=== PATIENT | male | born 1950 | race Caucasian/White ===

== ENCOUNTER → 2017-12-30 | Day surgery (SDC) | payer OTHER ==
[2017-12-29 09:44] LABS: BASOPHILS % 0.6 % (0.0-1.0); EOSINOPHILS # (AUTO) 0.2 (0.0-0.4); EOSINOPHILS % 3.6 % (0.0-6.0); HEMATOCRIT 40.8 % (38.2-49.6); HEMOGLOBIN 14.6 g/dL (14.0-18.0); LYMPHOCYTES # (AUTO) 1.4 (1.0-3.2); LYMPHOCYTES % 20.6 % (18.0-39.1); MEAN CORPUSCULAR HEMOGLOBIN 32.7 pg (28-32); MEAN CORPUSCULAR HGB CONC 35.8 g/dL (31-35); MEAN CORPUSCULAR VOLUME 91.5 fL (81-99); MONOCYTES # (AUTO) 0.6 (0.2-0.8); MONOCYTES % 8.1 % (4.4-11.3); NEUTROPHILS # (AUTO) 4.5 (2.1-6.9); NEUTROPHILS % 66.5 % (38.7-80.0); PLATELET COUNT 268 x10e3/uL (140-360); RED BLOOD COUNT 4.46 x10e6/uL (4.3-5.7)
[2017-12-29 10:09] LABS: ANION GAP 13.2 mmol/L (8-16); BLOOD UREA NITROGEN 19 mg/dL (7-26); BUN/CREATININE RATIO 21 (6-25); CALCIUM 9.6 mg/dL (8.4-10.2); CARBON DIOXIDE 27 mmol/L (22-29); CHLORIDE 104 mmol/L (98-107); CREATININE, SERUM 0.92 mg/dL (0.72-1.25); EST GLOMERULAR FILTRATION RATE > 60 ML/MIN (60-); GLUCOSE 146 mg/dL (74-118); POTASSIUM 4.2 mmol/L (3.5-5.1); SODIUM 140 mmol/L (136-145)
--- NOTE | 2017-12-29 11:12 | Diagnostic Imaging Report ---
PROCEDURE: Frontal and lateral views of the chest. COMPARISON: None. INDICATIONS: PRE-OP/ROTATOR CUFF FINDINGS: Lines/tubes: None. Lungs: The lungs are well inflated and clear. There is no evidence of pneumonia or pulmonary edema. Pleura: There is no pleural effusion or pneumothorax. Heart and mediastinum: The heart and the mediastinum are normal. Bones: No acute bony abnormality. IMPRESSION: 1. No acute cardiopulmonary disease. Dictated by: Christopher Bloom M.D. on 12/29/2017 at 11:19 Electronically approved by: Christopher Bloom M.D. on 12/29/2017 at 11:19
[~2017-12-30] MED LIST: AMLODIPINE BESY10 MG PO; ASPIRIN EC81 MG PO; CEFAZOLIN SOD 1 GM VIAL ONE; DEXAMETHASONE SOD PHOS INJ 4 MG/ML VIAL ONE; EPINEPHRINE HCL INJ 1 MG/ML AMP ONE; FENTANYL CITRATE/PF 100MCG/2 ML INJ ONE; GLYCOPYRROLATE INJ 1MG/ 5 ML SYR ONE; HYDROCHLOROTHIA25 MG PO; KETOROLAC TROMETHAMINE 30 MG/ML VIAL ONE; LIDOCAINE 2% /EPINEPHRINE 20 ML SDV INJ ONE; LIDOCAINE HCL 2% LOCAL INJ 5 ML SDV VIAL INJ ONE; LOSARTAN POTAS100 MG PO; METFORMIN HCL500 MG PO; MIDAZOLAM HCL 2 MG/2 ML VIAL ONE; NEOSTIGMINE 5 MG/5ML SYR ONE; ONDANSETRON HCL INJ 2 MG/ML VIAL ONE; PRAVASTATIN SOD40 MG PO; PROPOFOL IV EMULSION 10 MG/ML 20 ML VIAL ONE; ROCURONIUM BROMIDE 10 MG/ML 5ML VIAL ONE; ROPIVACAINE 0.5% 5 MG/ML 30 ML SDV ONE; SEVOFLURANE INHAL SOLN 250 ML PEN BTL ONE
[2017-12-30 12:45] VITALS: BP 143/77
--- NOTE | 2017-12-30 13:50 | Operative Report ---
DATE OF PROCEDURE: December 30, 2017 DRAFTER MECHANICAL: Vincent Carmona PA-C The patient was brought to the operating room for induction of anesthesia. Throughout this case, my PA's assistance was necessary for retraction of soft tissue and positioning of the extremity. This allows for efficient and technically successful execution of the operation and is considered medically necessary. PREOPERATIVE DIAGNOSIS: Right shoulder rotator cuff tear. POSTOPERATIVE DIAGNOSIS: Right shoulder rotator cuff tear. PROCEDURES PERFORMED: Right shoulder arthroscopy, subacromial decompression, rotator cuff repair. INDICATIONS: The patient is a 67-year-old gentleman who has chronic signs and symptoms consistent with a near full-thickness rotator cuff tear. He has failed conservative management and would like to proceed with surgical intervention. The risks and benefits of an arthroscopic rotator cuff repair have been discussed at length. He states he understands and wishes to proceed. PROCEDURE: The patient was brought to the operating room and placed under general anesthetic. He received a regional block and prophylactic antibiotics in the holding area. He was positioned in the beachchair position on the shoulder table. A preoperative time out was performed. A standard posterior arthroscopy portal was established. The shoulder was insufflated with sterile saline and systematically inspected. The glenohumeral surface had some grade I changes of chondromalacia. There was some degenerative fraying of the labrum. The biceps anchor at the supraglenoid tubercle was intact and stable. There was indeed a tear of the supraspinatus. A lateral working portal was established. A 5.5 mm electro blade shaver was easily introduced into the shoulder joint. The articular surface of the rotator cuff was debrided back to healthy tissue. Some minor fraying of the biceps tendon was debrided. The scope was placed into the subacromial space. A subacromial bursectomy and bone decompression was performed. The greater tuberosity was decorticated. An [employer] SpeedBridge double-row construct was used to repair the rotator cuff. [employer]ist holes were placed at the articular margin. Bioabsorbable anchors pre-loaded with FiberTape were seated. The stitches were passed through the rotator cuff using an Ar[employer]rex Scorpion suture passer. An anterior shuttle portal was established. The FiberTape stitches were then tensioned and anchored down to the proximal lateral humeral cortex with secondary bioabsorbable SwiveLock suture anchors. Nice secure fixation was obtained. The arthroscopic instruments were removed. The portal incisions were closed with nylon stitches. A sterile bandage and an UltraSling were applied. The patient was extubated and transported to the recovery room in stable condition. There was no blood loss and all needle and sponge counts were correct. Job#: [id number] VINITA
== END | disposition home or self-care (01) ==
LOC: OR 06:50
PROVIDERS: ATTEND Specialist
DX: M75.111 Incomplete rotator cuff tear or rupture of right shoulder, not specified as traumatic (principal); M94.211 Chondromalacia, right shoulder; I10 Essential (primary) hypertension; E11.9 Type 2 diabetes mellitus without complications; Z01.810 Encounter for preprocedural cardiovascular examination; Z01.812 Encounter for preprocedural laboratory examination; Z01.818 Encounter for other preprocedural examination; Z79.82 Long term (current) use of aspirin; Z79.84 Long term (current) use of oral hypoglycemic drugs; Z68.34 Body mass index [BMI] 34.0-34.9, adult
CPT/HCPCS: 29827; 36415 ×2; 71046; 80048; 82948; 85025; 93005; C1713; J0171; J0690; J1100; J1885; J2001 ×2; J2250; J2405; J2795; J3490